=== PATIENT | female | born 1980 | race Caucasian/White ===

== ENCOUNTER → 2016-12-11 | Outpatient (REF) ==
--- NOTE | 2016-12-11 16:03 | REP ---
Lumbar spine series: Three views. History: Degenerative disc disease. No comparison radiographs. Findings: There are clips in the right upper quadrant of the abdomen consistent with previous cholecystectomy and there are metallic clamps in the pelvis bilaterally suggesting previous tubal ligation. Lumbar vertebral body heights are preserved. There is mild discogenic spurring anteriorly at L4-5 and L3-4. Mild discogenic spurring is seen in the lower thoracic spine levels as well. Pedicles and posterior elements are intact. There is no evidence of spondylolysis or spondylolisthesis. Sacrum and SI joints are intact. Impression: Minimal degenerative disc changes, otherwise negative. Status post cholecystectomy and tubal ligation changes. Signed by Sameer Aiken MD 12/11/2016 04:59 P
--- NOTE | 2016-12-11 16:05 | REP ---
Right knee five views : There is no fracture or dislocation. Mineralization and joint spaces are normal. There are no calcifications or foreign bodies. Impression: Negative right knee . Signed by David Browne MD 12/11/2016 03:56 P
== END ==
LOC: M SMT 14:30
PROVIDERS: ATTEND Internal Medicine
DX: Z02.9 Encounter for administrative examinations, unspecified (principal)